=== PATIENT | female | born 1995 | race African-American/Black ===

== ENCOUNTER 2017-04-06 19:53 | Emergency (ER) | payer OTHER ==
[~2017-04-06] VITALS: Ht 162.6 cm; Wt 47.6 kg
--- NOTE | ~2017-04-06 | US61 ---
[facility] A Service of [facility] RADIOLOGY TEXT RESULTS PATIENT: CHITO SIM LOCATION: [facility] : [birth year] UNIT #: [id number] AGE: [address]: JOSE GROVE APRN SEX: F ORDER DR: [id number] [facility] [address] [place], [place] [address] [id number] MR#: [id number] Acc #: [id number] NAME: CHITO SIM : 1995 SEX: F STUDY DATE/TIME: 04/07/2017 0:06 UNIT: CFTX ROOM: STUDY DESCRIPTION: US /Mat <14Wk / Attending Physician: Jose Grove Aprn Ordering Physician: Jose Grove Aprn Primary Care Physician: Primary Care Physician No MEDICAL IMAGING REPORT This report is preliminary unless electronic signature is present EXAM First trimester pelvic ultrasound INDICATION patient with vaginal bleeding and right adnexal pain today. Quantitative beta HCG level is not available at the time of this dictation. PROCEDURE [place]-scale and Doppler imaging of the pelvis via transabdominal and transvaginal approach. COMPARISON None. FINDINGS Uterus anteverted and measures 8.2 x 4.3 x 4.8 cm. There is a gestational sac in the endometrial cavity that measures 1.3 x 1.0 x 1.2 cm, consistent with gestational age of 5 weeks and 6 days. Normal-appearing yolk sac with a pole and crown rump length 5 mm consistent with 6 weeks and 2 days. No detectable cardiac activity at this time. Right ovary measures 2.7 x 2.1 x 4.4 cm and contains a 2.3 cm cyst. Left ovary measures 1.9 x 1.3 x 3.4 cm and is unremarkable. Small amount of fluid in the cul-de-sac. IMPRESSION 1. Single intrauterine . [place]-rump length consistent with gestational age of 6 weeks and 2 days. No detectable cardiac activity is seen on this study. This is nonspecific and could be related to early . It could also be seen in the setting of demise. Recommend continued clinical followup and repeat pelvic ultrasounds as deemed clinically appropriate. Otherwise no identifiable complication. 2. 2.3 cm cyst in the right ovary. [facility] A Service of [facility] RADIOLOGY TEXT RESULTS PATIENT: CHITO SIM LOCATION: [facility] : [birth year] UNIT #: [id number] AGE: [address]: JOSE GROVE APRN SEX: F ORDER DR: Dictated by... Fabiano Rojas M.D. THIS IS AN ELECTRONICALLY VERIFIED REPORT Fabiano Rojas M.D. at 04/11/2017 8:31 AM SAHRA/bladimir TD: 04/07/2017 06:58 JOB #: [id number] MEDICAL IMAGING REPORT Page 1 of 1 COPY
[2017-04-06 23:56] LABS: BASOPHIL% 0.4 % (0-2.5); EOSINOPHIL# 0.2 X10e3 (0-0.7); EOSINOPHIL% 2.5 % (0.0-7.0); HEMATOCRIT 41.1 % (35.0-45.0); HEMOGLOBIN 13.7 gm/dL (12.0-16.0); LYMPHOCYTE# 3.4 X10e3 (1.0-3.5); MEAN CELL VOLUME 94.8 FL (83-96); MEAN CORPUSCULAR HEMOGLOBIN 31.6 PG (28-34); MEAN CORPUSCULAR HGB CONC 33.4 g/dL (30-36); MEAN PLATELET VOLUME 10.1 FL (6.5-11.5); MONOCYTE# 0.4 X10e3 (0-1.0); MONOCYTE% 5.9 % (3.0-12.0); NEUTROPHIL# 3.3 X10e3 (1.5-7.1); NEUTROPHIL% 45.2 % (40-75); PLATELET COUNT 168 X10e3 (140-420); RED BLOOD COUNT 4.34 X10e (3.90-5.30); RED CELL DISTRIBUTION WIDTH 12.2 % (11.0-15.5); WHITE BLOOD COUNT 7.4 X10e3 (4.0-10.5)
[2017-04-06 23:57] LABS: DIFF IND NO
== END 2017-04-07 01:15 | disposition home or self-care (01) ==
LOC: CED 19:53 → CFTX 19:53 → CED 23:08 → CFTX 04-07 01:15
PROVIDERS: Nurse Practitioner Family
DX: O20.0 Threatened abortion (principal); O99.331 Smoking (tobacco) complicating pregnancy, first trimester; F17.200 Nicotine dependence, unspecified, uncomplicated; Z3A.08 8 weeks gestation of pregnancy
CPT/HCPCS: 36415; 76801; 84702; 84703; 85025; 86900; 86901; 99284